=== PATIENT | female | born 1935 | race Caucasian/White ===

== ENCOUNTER → 2016-12-27 | Outpatient (REF) ==
[~2016-12-27] MED LIST: ATORVASTATIN; DIOVAN; GLYBURIDE MICRON3 MG PO; LORTAB 5/500 501 TAB PO; MS CONTIN15 MG PO
[2016-12-27 12:36] LABS: TOTAL IRON BINDING CAPACITY 319 ug/dL (265-497)
[2016-12-27 13:02] LABS: FERRITIN 69 ng/mL (11-264)
== END ==
LOC: ZLAB.WCH 12:07
PROVIDERS: Internal Medicine
DX: Z01.89 Encounter for other specified special examinations (principal)

== ENCOUNTER → 2018-10-07 | Outpatient (CLI) | payer MEDICARE, BC | LOC: MC.RAD 10:45 | DX: Z12.31 Encounter for screening mammogram for malignant neoplasm of breast (principal) ==

== ENCOUNTER → 2019-01-28 | Outpatient (REF) | LOC: ZLAB.WCH 16:25 | DX: Z01.89 Encounter for other specified special examinations (principal) ==

== ENCOUNTER → 2021-04-03 | Outpatient (CLI) | payer MEDICARE, BC | LOC: COL.PUL 12:30 | DX: R06.02 Shortness of breath (principal) ==